=== PATIENT | female | born 1965 | race American Indian/Alaskan Native ===

== ENCOUNTER 2017-05-18 11:34 | Day surgery (SDC) | payer MEDICAID ==
[~2017-05-18 11:34] MED LIST: WATER FOR IRRIG STERILE IR ONE
[2017-05-18] MEDS ORDERED: WATER FOR IRRIG STERILE ONE (12:37)
--- NOTE | 2017-05-18 12:52 | Anesthesia Consultation ---
Anesthesia Consult and Med Hx - Airway Anesthetic Teeth Evaluation: Good ROM Head & Neck: Adequate Mental/Hyoid Distance: Adequate Mallampati Class: Class III Intubation Access Assessment: Possibly Difficult - Pulmonary Exam CTA: Yes - Cardiac Exam Cardiac Exam: RRR - Pre-Operative Health Status ASA Pre-Surgery Classification: ASA3 Proposed Anesthetic Plan: MAC (no previous anesthesia problems) - Pulmonary Hx Smoking: Yes Hx Asthma: Yes (uses an inhaler) - Cardiovascular System Hx Hypertension: Yes (HX; no longer on meds - blood pressure too low) - Central Nervous System Hx Neuromuscular Disorder: Yes (hip ;and shoulder - takes pain medication) Hx Psychiatric Problems: Yes (depression - on meds) - Gastrointestinal Hx Gastroesophageal Reflux Disease: Yes (pain - also probiotics ) - Endocrine Hx Renal Disease: No (has difficulty sleeping - takes sleeping medication) - Other Systems Hx Obesity: Yes
[2017-05-18] MEDS ORDERED: DIPRIVAN 10 MG/ML IV ONE ×2 (12:54)
--- NOTE | 2017-05-18 12:56 | Anesthesia Day of Surgery ---
Anesthesia Day of Surgery - Day of Surgery Patient Examined: Yes Patient H&P Reviewed: Yes Patient is NPO: Yes
[2017-05-18] MEDS ORDERED: NACL 0.9% 1000 ML 1,000 ML IV SCH (13:00)
--- NOTE | 2017-05-18 13:45 | Operative Report ---
Operative Report Operative Report: Date of procedure: 05/18/2017 Procedure: Colonoscopy . Attending physician: Gideon Fernandez MD Coating Technician: Gideon Fernandez MD Indication: Patient is a 51-year-old female who presents for colonoscopy to evaluate abdominal pain and change in bowel habits and past history of colon polyps. A colonoscopy is now to evaluate patient so that treatment may be directed based on the findings. Consent: Informed consent was obtained after advising the patient and family regarding nature of this procedure, its indications, potential benefits as well as possible complications including but not limited to bleeding perforation and adverse reaction to medication, infection as well as other cardiopulmonary complications. An informed written and verbal consent was then obtained after due opportunity was provided for questions and answers. Monitoring: Patient was monitored continuously with pulse oximetry and electrocardiographic recordings as well as blood pressure recordings. Vital signs remained stable throughout this procedure with no untoward events. Preoperative assessment: Patient was assessed immediately prior to this procedure for capacity to tolerate monitored anesthesia care and moderate sedation as well as general anesthesia. Patient's ASA classification is 2, Mallampati class is 2, Hyomental distance is 3. Instrument: HALFPOPS video colonoscope Medications: Propofol given intravenously in divided doses. For details please refer to anesthesia records. Description of procedure: Patient was placed in the left lateral decubitus position after achieving sedation, a digital rectal examination was performed following which the colonoscope was introduced into the anal verge and advanced to the cecum which was identified by the ileocecal valve, the appendiceal orifice, as well as by the cecal strap and direct transillumination. The colonoscope was subsequently withdrawn with careful inspection of all mucosal surfaces. Patient tolerated this procedure well and was subsequently taken to the recovery room. The following findings were noted. Findings: Patient had densely adherent stool in sections of the colon. There were a few diverticula seen in the descending and sigmoid colon. The entirety of the colon otherwise to the cecum was normal. On the retroflex view at the anal verge, patient had internal hemorrhoids . Impression: Mild colonic diverticulosis. Retained stool. Internal hemorrhoids. Plan: High-fiber diet. Consider earlier colonoscopy secondary to relatively poor colonoscopic preparation perhaps in one to 2 years.
--- NOTE | 2017-05-18 13:46 | Discharge Summary ---
Short Stay Discharge Plan Activity: advance as tolerated Weight Bearing Status: Weight Bear as Tolerated Diet: regular Additional Instructions: Post Sedation D/C Instructions When you return home you may resume your regular diet unless otherwise directed. -Go directly home from the hospital and rest quietly. You may resume normal activities tomorrow. -Do NOT drive, return to work, operate any machinery or make any important personal or business decisions today. -Do NOT drink any alcohol or take nerve or sleeping drugs. They add to the effects of the medicine still present in your body.
[2017-05-18 13:56] VITALS: BP 110/78
== END 2017-05-18 13:55 | disposition home or self-care (01) ==
LOC: GIO 11:34
PROVIDERS: ATTEND Internal Medicine Gastroenterology
DX: K57.30 Diverticulosis of large intestine without perforation or abscess without bleeding (principal); K21.9 Gastro-esophageal reflux disease without esophagitis; K64.8 Other hemorrhoids; I10 Essential (primary) hypertension; J45.909 Unspecified asthma, uncomplicated; E66.9 Obesity, unspecified; F17.200 Nicotine dependence, unspecified, uncomplicated; F32.9 Major depressive disorder, single episode, unspecified; Z68.41 Body mass index [BMI] 40.0-44.9, adult; Z88.6 Allergy status to analgesic agent; Z91.013 Allergy to seafood; Z91.018 Allergy to other foods
CPT/HCPCS: 45378; J2704